=== PATIENT | male | born 1950 | race Two or more races ===

== ENCOUNTER 2019-12-14 09:15 | Inpatient (IN) | payer OTHER ==
[~2019-12-14] VITALS: Ht 170.2 cm; Wt 77.1 kg
[2019-12-19] MEDS ORDERED: DESCOVY 200-251 EACH PO ×2 (10:21→10:22)
[2019-12-19] MEDS ORDERED: [UNRECOGNIZED DRUG - OTHER] PO (10:23)
[2019-12-19] MEDS ORDERED: FENOFIBRAT PO (10:48)
[2019-12-19] MEDS ORDERED: CRESTOR10 MG PO (10:49)
[2019-12-19] MEDS ORDERED: GLIPIZIDE XL10 MG PO (10:49)
[2019-12-19] MEDS ORDERED: [UNRECOGNIZED DRUG - OTHER] PO (10:51)
[2019-12-19] MEDS ORDERED: CARVEDILOL12.5 MG PO (10:51)
[2019-12-22] MEDS ORDERED: FENOFIBRATE145 MG PO (08:39)
[2019-12-22] MEDS ORDERED: LANOXIN125 MCG (08:40)
[2019-12-22] MEDS ORDERED: ISENTRESS HD600 MG (08:41)
[2019-12-22] MEDS ORDERED: PROAIR HFA8.5 GM (08:41)
[2019-12-22] MEDS ORDERED: DIGOXIN125 MCG (08:42)
[2019-12-22] MEDS ORDERED: KOMBIGLYZE XR1 EAC1 (08:42)
[2019-12-24] MEDS ORDERED: PERCOCET 5-3251 EACH PO (11:14)
[2019-12-24] MEDS ORDERED: TAMS0.4C PO (11:17)
== END 2019-12-24 11:55 | disposition home or self-care (01) | DRG 330 ==
LOC: SURH 12-19 08:45 → O/R 12-21 07:38 → SURG 12-21 07:38 → SURH 12-21 08:45 → EDBD 12-21 08:45 → SURH 12-21 10:00 → SURG 12-21 14:47
PROVIDERS: ADMIT Surgery; ATTEND Surgery
PROC: 0D1L4Z4 Bypass Transverse Colon to Cutaneous, Percutaneous Endoscopic Approach (ICD-10-PCS; principal; 2019-12-21 10:00)
DX: C21.0 Malignant neoplasm of anus, unspecified (principal); K62.6 Ulcer of anus and rectum; B20 Human immunodeficiency virus [HIV] disease; R19.5 Other fecal abnormalities; K62.89 Other specified diseases of anus and rectum; I51.9 Heart disease, unspecified

== ENCOUNTER 2020-01-29 10:10 | Emergency (ER) | payer OTHER ==
[~2020-01-29] VITALS: Ht 170.2 cm; Wt 80.7 kg
[~2020-01-29 10:10] MED LIST: CARVEDILOL12.5 MG PO; CRESTOR10 MG PO; DESCOVY 200-251 EACH PO; DIGOXIN125 MCG; FENOFIBRAT PO; FENOFIBRATE145 MG PO; GLIPIZIDE XL10 MG PO; ISENTRESS HD600 MG; KOMBIGLYZE XR1 EAC1; LANOXIN125 MCG; PERCOCET 5-3251 EACH PO; PROAIR HFA8.5 GM; TAMS0.4C PO; [UNRECOGNIZED DRUG - OTHER] PO; [UNRECOGNIZED DRUG - OTHER] PO
== END 2020-01-29 14:11 | disposition home or self-care (01) ==
LOC: ER 10:10
DX: K62.5 Hemorrhage of anus and rectum (principal); Z03.818 Encounter for observation for suspected exposure to other biological agents ruled out